=== PATIENT | male | born 1975 | race Caucasian/White ===

== ENCOUNTER 2022-03-28 20:50 | Emergency (ER) | payer OTHER ==
[2022-03-28] MEDS ORDERED: Sodium Chloride 0.9% 1000 ML 1,000 ML IV STA (21:01)
--- NOTE | 2022-03-28 21:09 | ERPHSYRPT ---
- History of Present Illness Time Seen by Provider: 03/28/22 21:03 Source: patient Exam Limitations: no limitations Physician History: Patient is a 47-year-old male who presents with a complaint of fever and cough he also has 2 family members that have tested positive for COVID. His temperature at home has been 99.9 he has been coughing he has a headache he has some nausea but no vomiting. He has some generalized muscle ache. Timing/Duration: yesterday Cough Quality/Degree: productive cough Possible Cause: no prior episodes Modifying Factors: Improves With: coughing Associated Symptoms: fever Allergies/Adverse Reactions: No Known Drug Allergies Allergy (Verified 03/28/22 21:07) Hx Tetanus, Diphtheria Vaccination/Date Given: No Hx Influenza Vaccination/Date Given: No Hx Pneumococcal Vaccination/Date Given: No - Review of Systems Constitutional: Fever, Chills, Night Sweats Eyes: No Symptoms Ears, Nose, & Throat: No Symptoms Respiratory: Cough, Dyspnea Cardiac: No Chest Pain, No Edema, No Syncope Abdominal/Gastrointestinal: Abdominal Pain, Nausea, No Vomiting, No Diarrhea Genitourinary Symptoms: No Dysuria Musculoskeletal: Arthralgias, Myalgias, No Back Pain, No Neck Pain Skin: No Rash Neurological: Headache, No Dizziness, No Focal Weakness, No Sensory Changes Psychological: No Symptoms Endocrine: No Symptoms All Other Systems: Reviewed and Negative - Past Medical History Pertinent Past Medical History: No - Past Surgical History Past Surgical History: No - Social History Smoking Status: Heavy tobacco smoker How long have you smoked: 28y Exposure to second hand smoke: Yes Drug Use: none Patient Lives Alone: No - Nursing Vital Signs Nursing Vital Signs: Initial Vital Signs Temperature 99.9 F 03/28/22 20:55 Pulse Rate 116 H 03/28/22 20:55 Respiratory Rate 16 03/28/22 20:55 Blood Pressure 122/84 03/28/22 20:55 O2 Sat by Pulse Oximetry 96 03/28/22 20:55 Pain Scale Pain Intensity 0 - Physical Exam General Appearance: mild distress Eye Exam: PERRL/EOMI, eyes nml inspection Ears, Nose, Throat Exam: normal ENT inspection, TMs normal, pharynx normal, moist mucous membranes Neck Exam: normal inspection, non-tender, supple, full range of motion Respiratory Exam: airway intact, wheezing Cardiovascular Exam: regular rate/rhythm, normal heart sounds Gastrointestinal/Abdomen Exam: normal bowel sounds, tenderness, guarding, No rebound Back Exam: normal inspection, No CVA tenderness, No vertebral tenderness Extremity Exam: normal inspection, normal range of motion Neurologic Exam: alert, oriented x 3, cooperative, normal mood/affect, sensation nml, No motor deficits Skin Exam: normal color, warm, dry, No rash SpO2 Interpretation: normal SpO2: 96 O2 Delivery: Room Air - Course Nursing assessment & vital signs reviewed: Yes EKG Interpreted by Me: RATE (99), Sinus Rhythm, NORMAL AXIS, NORMAL INTERVALS, NORMAL QRS, Non-specific ST Changes, Other (ST segment elevation probably early repolarization pattern) - Radiology Exams Chest X-ray Interpretation: Interpreted by me, Negative - CT Exams Chest CT Interpretation: Tele-radiologist Report Ordered Tests: Active Orders 24 hr Category Date Time Status EKG-ER Only STAT Care 03/28/22 21:01 Active CHEST 1 VIEW (PORTABLE) Stat Exams 03/28/22 21:01 Taken CHEST WITH CONTRAST [CT] Stat Exams 03/28/22 21:40 Taken CBC W DIFF Stat Lab 03/28/22 21:12 Completed CMP Stat Lab 03/28/22 21:12 Completed D-DIMER QUANTITATIVE Stat Lab 03/28/22 21:10 Completed Lactic Acid Stat Lab 03/28/22 21:30 Completed TROPONIN Q3H Lab 03/28/22 21:15 Completed TROPONIN Q3H Lab 03/29/22 00:15 Ordered TROPONIN Q3H Lab 03/29/22 03:15 Ordered TROPONIN Q3H Lab 03/29/22 06:15 Ordered TROPONIN Q3H Lab 03/29/22 09:15 Ordered Respiratory Therapy Assessment DAILY RT 03/28/22 21:19 Completed Medication Summary Discontinued Medications Generic Name Dose Route Start Last Admin Trade Name Freq PRN Reason Stop Dose Admin Albuterol Sulfate 4 puff 03/28/22 21:18 03/28/22 21:20 Albuterol Common Canister Inhaler IH 03/28/22 21:19 4 puff ONCE ONE Administration Sodium Chloride 1,000 mls @ 999 mls/hr 03/28/22 21:01 03/28/22 22:35 Sodium Chloride 0.9% 1000 Ml IV 03/28/22 22:01 Infused .Q1H1M STA Infusion Sodium Chloride Confirm 03/28/22 21:10 Sodium Chloride 0.9% 1000 Ml Administered 03/28/22 21:11 Dose 1,000 mls @ ud .ROUTE .[facility] Sodium Chloride Confirm 03/28/22 21:12 Sodium Chloride 0.9% 1000 Ml Administered 03/28/22 21:13 Dose 1,000 mls @ ud .ROUTE .[facility] Lab/Rad Data: Laboratory Result Diagrams 03/28/22 21:12 03/28/22 21:12 Laboratory Results 03/28/22 03/28/22 03/28/22 Range/Units 21:30 21:15 21:12 WBC (4.0-10.5) x10^3/uL RBC (4.1-5.6) x10^6/uL Hgb (12.5-18.0) g/dL Hct (42-50) % MCV (78-100) fL MCH (26-32) pg MCHC (32-36) g/dL RDW (11.5-14.0) % Plt Count (150-450) x10^3/uL MPV (7.5-11.0) fL Gran % (36.0-66.0) % Immature Gran % (Auto) (0.00-0.4) % Nucleat RBC Rel Count (0.00-0.1) % Eos # (Auto) (0-0.5) x10^3/uL Immature Gran # (Auto) (0.00-0.03) x10^3u/L Absolute Lymphs (auto) (1.0-4.6) x10^3/uL Absolute Monos (auto) (0.0-1.3) x10^3/uL Absolute Nucleated RBC (0.00-0.01) x10^3u/L Lymphocytes % (24.0-44.0) % Monocytes % (0.0-12.0) % Eosinophils % (0.00-5.0) % Basophils % (0.0-0.4) % Absolute Granulocytes (1.4-6.9) x10^3/uL Basophils # (0-0.4) x10^3/uL D-Dimer (0.0-0.50) mg/L Sodium 133 L (137-145) mmol/L Potassium 4.1 (3.5-5.1) mmol/L Chloride 102 (98-107) mmol/L Carbon Dioxide 23 (22-30) mmol/L Anion Gap 13.1 (5-15) MEQ/L BUN 13 (9-20) mg/dL Creatinine 0.90 (0.66-1.25) mg/dL Estimated GFR > 60.0 ML/MIN Glucose 112 H (74-106) mg/dL Lactic Acid 1.2 (0.4-2.0) Calcium 9.3 (8.4-10.2) mg/dL Total Bilirubin 0.30 (0.2-1.3) mg/dL AST 37 (17-59) U/L ALT 25 (0-50) U/L Alkaline Phosphatase 85 (38-126) U/L Troponin I < 0.012 (0.000-0.034) ng/mL Serum Total Protein 7.5 (6.3-8.2) g/dL Albumin 4.5 (3.5-5.0) g/dL Influenza Type A Ag (NEGATIVE) Influenza Type B Ag (NEGATIVE) RSV (PCR) (Negative) SARS-CoV-2 (PCR) (NEGATIVE) 03/28/22 03/28/22 03/28/22 Range/Units 21:12 21:10 21:10 WBC 4.8 (4.0-10.5) x10^3/uL RBC 4.33 (4.1-5.6) x10^6/uL Hgb 14.3 (12.5-18.0) g/dL Hct 41.6 L (42-50) % MCV 96.1 (78-100) fL MCH 33.0 H (26-32) pg MCHC 34.4 (32-36) g/dL RDW 12.6 (11.5-14.0) % Plt Count 180 (150-450) x10^3/uL MPV 9.5 (7.5-11.0) fL Gran % 63.4 (36.0-66.0) % Immature Gran % (Auto) 0.2 (0.00-0.4) % Nucleat RBC Rel Count 0.0 (0.00-0.1) % Eos # (Auto) 0.01 (0-0.5) x10^3/uL Immature Gran # (Auto) 0.01 (0.00-0.03) x10^3u/L Absolute Lymphs (auto) 0.73 L (1.0-4.6) x10^3/uL Absolute Monos (auto) 1.00 (0.0-1.3) x10^3/uL Absolute Nucleated RBC 0.00 (0.00-0.01) x10^3u/L Lymphocytes % 15.1 L (24.0-44.0) % Monocytes % 20.7 H (0.0-12.0) % Eosinophils % 0.2 (0.00-5.0) % Basophils % 0.4 (0.0-0.4) % Absolute Granulocytes 3.07 (1.4-6.9) x10^3/uL Basophils # 0.02 (0-0.4) x10^3/uL D-Dimer 1.10 H* (0.0-0.50) mg/L Sodium (137-145) mmol/L Potassium (3.5-5.1) mmol/L Chloride (98-107) mmol/L Carbon Dioxide (22-30) mmol/L Anion Gap (5-15) MEQ/L BUN (9-20) mg/dL Creatinine (0.66-1.25) mg/dL Estimated GFR ML/MIN Glucose (74-106) mg/dL Lactic Acid (0.4-2.0) Calcium (8.4-10.2) mg/dL Total Bilirubin (0.2-1.3) mg/dL AST (17-59) U/L ALT (0-50) U/L Alkaline Phosphatase (38-126) U/L Troponin I (0.000-0.034) ng/mL Serum Total Protein (6.3-8.2) g/dL Albumin (3.5-5.0) g/dL Influenza Type A Ag NEGATIVE (NEGATIVE) Influenza Type B Ag NEGATIVE (NEGATIVE) RSV (PCR) NEGATIVE (Negative) SARS-CoV-2 (PCR) POSITIVE A (NEGATIVE) - Progress Progress: unchanged Air Movement: good Blood Culture(s) Obtained: No Antibiotics given: No - Departure Departure Disposition: Home Clinical Impression: COVID Condition: Stable Critical Care Time: No Referrals: LANNY STEVENS DO [Primary Care Provider] - Follow up/PCP as directed Instructions: COVID-19 (DC) Prescriptions: Nirmatrelvir/Ritonavir [Paxlovid 2X150 mg-100 mg (Eua)] 1 each PO BID 5 Days #10 tablet
[2022-03-28] MEDS ORDERED: Sodium Chloride 0.9% 1000 ML 0 ML ONE (21:10)
[2022-03-28] MEDS ORDERED: Sodium Chloride 0.9% 1000 ML 1,000 ML ONE (21:12)
[2022-03-28 21:16] LABS: Absolute Neutrophil Ct (ANC) 3.07 x10^3/uL (1.4-6.9); Basophil (Absolute #) 0.02 x10^3/uL (0-0.4); Eosinophil % 0.2 % (0.00-5.0); Eosinophil (Absolute #) 0.01 x10^3/uL (0-0.5); Hematocrit 41.6 % (42-50); Hemoglobin 14.3 g/dL (12.5-18.0); Lymphocyte (Absolute #) 0.73 x10^3/uL (1.0-4.6); Lymphocytes % 15.1 % (24.0-44.0); Mean Cell Volume 96.1 fL (78-100); Mean Corpuscular Hgb Concent. 34.4 g/dL (32-36); Mean Platelet Volume 9.5 fL (7.5-11.0); Monocytes % 20.7 % (0.0-12.0); Neutrophil % 63.4 % (36.0-66.0); Platelet Count 180 x10^3/uL (150-450); Red Blood Count 4.33 x10^6/uL (4.1-5.6); Red Cell Distribution Width 12.6 % (11.5-14.0); White Blood Count 4.8 x10^3/uL (4.0-10.5)
[2022-03-28] MEDS ORDERED: VENTOLIN COMMON CANISTER IH ONE (21:18)
[2022-03-28 21:29] LABS: ALBUMIN 4.5 g/dL (3.5-5.0); ALKALINE PHOSPHATASE 85 U/L (38-126); ANION GAP 13.1 MEQ/L (5-15); BLOOD UREA NITROGEN 13 mg/dL (9-20); CHLORIDE 102 mmol/L (98-107); Calcium 9.3 mg/dL (8.4-10.2); Carbon Dioxide 23 mmol/L (22-30); EST GLOMERULAR FILTRATION RATE > 60.0 ML/MIN; Glucose 112 mg/dL (74-106); Potassium 4.1 mmol/L (3.5-5.1); SGOT/AST 37 U/L (17-59); SGPT/ALT 25 U/L (0-50); SODIUM 133 mmol/L (137-145); Total Protein 7.5 g/dL (6.3-8.2)
[2022-03-28 21:55] LABS: INFLUENZA A NEGATIVE (NEGATIVE); INFLUENZA B NEGATIVE (NEGATIVE); RESPIRATORY SYNCTIAL VIRUS NEGATIVE (Negative)
[2022-03-28 21:59] LABS: SARS-CoV-2 Xpert Express POSITIVE (NEGATIVE)
[2022-03-28 23:08] VITALS: BP 118/65; PULSE 88; O2SAT 98
--- NOTE | 2022-03-29 15:12 | XRAY ---
Exam: AP upright portable chest film. Comparison: [None.] Indication: Cough; fever. Findings: The superior margin of the left lung apex may be slightly cut off from the [id number]. The lungs are well expanded. The heart size and contour are normal. The ct and mediastinal structures appear unremarkable. No air space infiltrates, vascular congestion, pneumothorax, or pleural fluid is seen. The lateral costophrenic angle tips have been barely cut off from the inferior margin of the film. There is minimal convexity of the upper thoracic spine toward the left and the lower mid thoracic spine toward the right. No acute osseous process is seen. Impression: 1. No acute cardiopulmonary disease is seen. 2. Minimal S-shaped thoracic scoliosis.
--- NOTE | 2022-03-29 16:26 | XRAY ---
Exam: CT of the chest with IV contrast, per PE protocol from 03/28/2022. CTDI: 27.63 mGy Comparison: AP upright portable chest film from 03/28/2022. Indication: 47-year-old male with elevated d-dimer; headaches, fever, shortness of breath; possible Covid-19. Technique: Post-IV contrast axial images were obtained through the chest during automated injection of 100 ML's of Isovue 370 contrast material, per PE protocol. Reconstructed coronal and sagittal images were created and reviewed. Findings: The pulmonary arterial branches are well-opacified within the lower lung almaguer. I see no definite filling defects within the lower lobe branching pulmonary arteries. However, this becomes more indeterminate within the upper lung almaguer. Specifically, on axial image #128 through #130, there is a question of a nonobstructing embolus within the proximal right upper lobe pulmonary artery. There is also a question of poor opacification, perhaps due to small emboli within branches of the left upper lobe pulmonary artery. It is conceivable that this is due to contrast within the pulmonary arterial tree beginning to diminish. But this leaves the study indeterminate for pulmonary emboli. This was discussed with Dr. Olsen at approximately 3:55 PM on 03/29/2022. One may want to consider repeating the CT study. I see no evidence of thoracic aortic aneurysm or dissection. The heart size is normal without pericardial effusion. There are a few small reactive lymph nodes within the mediastinum and right hilum, the largest measuring about 1.0 cm in short axis overlying the right hilum on image #246. No definite pathological lymphadenopathy is seen. The lungs are well expanded and are free of infiltrates, ground glass opacities, suspicious soft tissue lung nodularity, pneumothorax, or pleural effusion. The adrenal glands within the upper abdomen appear unremarkable. The gallbladder is mostly contracted. There is a minimal lower mid thoracic dextroscoliosis. No fracture or aggressive bone lesion is seen. Some small anterior vertebral endplate spurs are seen near the thoracolumbar junction on the sagittal images. Impression: 1. I see no filling defects within the lower lobe pulmonary arteries. However, this because less determinant within the upper lung almaguer, as discussed above. This could be because of the timing of the contrast administration with respect to the imaging. The possibility of pulmonary emboli within the upper lobe pulmonary arteries cannot be completely excluded. For example, see axial images #128 through #130 within the proximal right upper lobe pulmonary artery. This report was discussed with the emergency department physician, Dr. Olsen, at approximately 3:55 PM on 03/29/2022. A repeat CT study may be helpful for further evaluation. 2. I see no evidence of pulmonary airspace infiltrates or groundglass opacities. No other active lung disease is seen. 3. Minimal lower mid thoracic dextroscoliosis. 4. Some scattered reactive lymph nodes are seen within the mediastinum and right hilum. No definite pathological lymphadenopathy is seen.
== END 2022-03-28 23:21 | disposition home or self-care (01) ==
LOC: ED 20:50
DX: U07.1 COVID-19 (principal); R50.9 Fever, unspecified; R05.9 Cough, unspecified; R51.9 Headache, unspecified; R11.0 Nausea; M79.10 Myalgia, unspecified site; Z72.0 Tobacco use; Z20.822 Contact with and (suspected) exposure to COVID-19; R91.8 Other nonspecific abnormal finding of lung field
CPT/HCPCS: 0241U; 36000; 36415; 71045; 71260; 80053; 83605; 84484; 85025; 85379; 93005; 94640; 99284